=== PATIENT | male | born 1940 | race Native Hawaiian/Other Pacific Islander ===

== ENCOUNTER 2017-01-29 07:54 | Day surgery (SDC) | payer OTHER ==
[2017-01-24 11:00] LABS: PLATELET COUNT 247 K/uL (142-355)
[2017-01-24 11:21] LABS: POTASSIUM 4.3 mmol/L (3.6-5.2)
[~2017-01-29] VITALS: Ht 30.5 cm; Wt 0.5 kg
[~2017-01-29 07:54] MED LIST: CALALOT EX; HYDR25TA15 PO; LISI20TA24 PO; MEDROL DOSEPAK4 MG OR; ONGLYZA2.5 MG PO; ZOCOR80 MG PO; [UNRECOGNIZED DRUG - SUPPLY] XX; [UNRECOGNIZED DRUG - SUPPLY] XX
== END 2017-01-29 12:40 | disposition home or self-care (01) ==
LOC: OR 07:54
PROVIDERS: Student in an Organized Health Care Education/Training Program
PROC: 0DJD8ZZ Inspection of Lower Intestinal Tract, Via Natural or Artificial Opening Endoscopic (ICD-10-PCS; principal; 2017-01-29)
DX: K64.8 Other hemorrhoids (principal); Z12.11 Encounter for screening for malignant neoplasm of colon
CPT/HCPCS: 36415; 80053; 85027; J2001; J2405; J2704; J3010

== ENCOUNTER 2017-02-24 21:35 | Emergency (ER) | payer OTHER ==
[~2017-02-24] VITALS: Ht 172.7 cm; Wt 71.8 kg
[2017-02-24 23:23] LABS: PLATELET COUNT 433 K/uL (142-355)
[2017-02-24 23:32] LABS: POTASSIUM 4.4 mmol/L (3.6-5.2)
[2017-02-25 00:55] VITALS: BP 140/65; TEMP 97.6
== END 2017-02-25 01:00 | disposition home or self-care (01) ==
LOC: ED 21:35
DX: R31.9 Hematuria, unspecified (principal); R19.09 Other intra-abdominal and pelvic swelling, mass and lump
CPT/HCPCS: 36415; 74022; 80053; 81000; 85027; 99283